=== PATIENT | female | born 1970 | race Two or more races ===

== ENCOUNTER → 2024-11-24 | Outpatient (CLI) | payer BC, SELFPAY ==
--- NOTE | 2024-11-24 13:00 | XR_ITS ---
Examination: CT chest, without intravenous contrast. Sagittal and coronal 2-D reconstructions. Exam date and time: November 24, 2024 1310 hours INDICATIONS: Coughing congestion one year CTDI:vol (mGy) 11.9 DLP: (mGycm) 399 Technique: Multiple 3.0 mm axial sections of the chest to been obtained. Bone and lung density settings are obtained. Sagittal and coronal 2-D reconstructions have been obtained. Low dose protocols were performed. One or more of the following dose reduction techniques were used; automated exposure control, adjustment of the mA and/or KV according to patient size, use of iterative reconstruction technique. Findings: No thoracic aortic aneurysm dilatation Pulmonary artery segments are not enlarged No paratracheal tracheobronchial or bronchopulmonary adenopathy 4 mm pulmonary nodule left lower lobe image 185 6 mm pulmonary nodule lingular segment image 202 No pneumonia or pulmonary edema Fatty infiltration throughout the liver Absent gallbladder No pancreatic or adrenal mass IMPRESSION: Noncalcified pulmonary nodules as above, with this study as baseline recommend 6 month follow-up CT chest without contrast
== END | disposition home or self-care (01) ==
LOC: CCTX 12:52
PROVIDERS: PCP Nurse Practitioner; Referring Provider Nurse Practitioner; Visit Provider Nurse Practitioner
DX: R91.8 Other nonspecific abnormal finding of lung field (principal)
CPT/HCPCS: 71250

== ENCOUNTER → 2024-12-15 | Outpatient (CLI) | payer BC, SELFPAY ==
--- NOTE | 2024-12-15 11:53 | XR_ITS ---
Examination: Hand, right 3 views Technique: Hand AP, oblique, lateral 3 views Date and time of exam: December 15, 2024 at 1309 hours INDICATIONS: Right thumb trigger finger several months FINDINGS: Prominent juxta-articular bone demineralization No fracture or dislocation No erosive arthritis No cortical bone destruction No opaque foreign bodies Mild osteoarthritis interphalangeal joints IMPRESSION: Prominent juxta-articular bone demineralization No fracture or dislocation No erosive arthritis
== END | disposition home or self-care (01) ==
LOC: CDIM 11:45
PROVIDERS: PCP Nurse Practitioner; Referring Provider Orthopaedic Surgery; Visit Provider Orthopaedic Surgery
DX: M89.8X4 Other specified disorders of bone, hand (principal)
CPT/HCPCS: 73130

== ENCOUNTER → 2024-12-31 | Outpatient (CLI) | payer BC, SELFPAY ==
--- NOTE | 2024-12-31 | XR_ITS ---
EXAMINATION: Cervical spine, 5 views Technique: Cervical spine AP, AP odontoid, lateral, bilateral obliques, 5 views Exam date and time: December 31, 2024 1243 hours INDICATIONS: Neck pain beginning 2 months ago FINDINGS: Adequate alignment cervical vertebral bodies No cervical fracture No significant neural foraminal stenosis No significant cervical disc narrowing IMPRESSION: No cervical fracture or significant cervical disc narrowing
== END | disposition home or self-care (01) ==
PROVIDERS: PCP Nurse Practitioner; Referring Provider Orthopaedic Surgery; Visit Provider Orthopaedic Surgery
DX: M54.2 Cervicalgia (principal)
CPT/HCPCS: 72050

== ENCOUNTER → 2025-06-05 | Outpatient (CLI) | payer BC, SELFPAY ==
--- NOTE | 2025-06-05 10:30 | XR_ITS ---
Examination: CT chest, without intravenous contrast. Sagittal and coronal 2-D reconstructions. Exam date and time: June 05, 2025, 1305 hours, comparison November 24, 2024 INDICATIONS: Coughing and shortness of breath 1 year, 4 mm pulmonary nodule left lower lobe 6 mm pulmonary nodule lingular segment on CT chest November 24, 2024 CTDI:vol (mGy) 10.7 DLP: (mGycm) 327 Technique: Multiple 3.0 mm axial sections of the chest to been obtained. Bone and lung density settings are obtained. Sagittal and coronal 2-D reconstructions have been obtained. Low dose protocols were performed. One or more of the following dose reduction techniques were used; automated exposure control, adjustment of the mA and/or KV according to patient size, use of iterative reconstruction technique. Findings: No thoracic aortic aneurysm dilatation Pulmonary artery segments are not enlarged Mild enlargement cardiac contour No current pulmonary nodules identified Mild vascular congestion Severe diffuse fatty infiltration within enlarged liver only partly visualized Absent gallbladder Spleen not enlarged No pancreatic mass IMPRESSION: No current pulmonary nodules noted Enlarged liver with severe diffuse fatty infiltration
== END | disposition home or self-care (01) ==
LOC: SCAT 12:35
PROVIDERS: PCP Nurse Practitioner; Referring Provider Nurse Practitioner; Visit Provider Nurse Practitioner
DX: K76.0 Fatty (change of) liver, not elsewhere classified (principal)
CPT/HCPCS: 71250